=== PATIENT | female | born 1970 | race Hispanic/Latino ===

== ENCOUNTER 2018-06-23 09:21 | Emergency (ER) | payer OTHER ==
[~2018-06-23] VITALS: Ht 165.1 cm; Wt 54.4 kg
[2018-06-23] MEDS ORDERED: METHYLPREDNISOLONE ACETATE 40 MG/ML VIAL IM ONE (09:45)
--- NOTE | 2018-06-23 10:11 | Diagnostic Imaging Report ---
PROCEDURE:FINGER RT - HOPD COMPARISON:None. INDICATIONS:rt thumb pain FINDINGS: No evidence of fracture or malalignment. There is soft tissue edema of the thumb. The joint spaces are preserved. CONCLUSION: Soft tissue edema of the thumb without evidence of fracture or malalignment. Dictated by: LUCIE COTE M.D. on 06/23/2018 at 10:17 Electronically approved by: LUCIE COTE M.D. on 06/23/2018 at 10:17
== END 2018-06-23 11:22 | disposition home or self-care (01) ==
LOC: FSED 09:21
DX: M65.311 Trigger thumb, right thumb (principal); M77.9 Enthesopathy, unspecified
CPT/HCPCS: 73140; 99283; J1030

== ENCOUNTER 2019-09-06 06:52 | Emergency (ER) | payer OTHER ==
[~2019-09-06] VITALS: Ht 165.1 cm; Wt 54.4 kg
--- OUTSIDE RECORDS SUMMARY | 2019-09-06 06:55 | XMS REPORT ---
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 Allergies, Adverse Reactions, Alerts This patient has no known allergies or adverse reactions. Medications This patient has no known medications. Results Test Description Test Time Test Comments Text Results Atomic Results Result Comments FINGER RT - HOPD 2018-06-23 10:17:00 [place] [address] Patient Name: WILLIS GARCIA MR #: [id number] : 1970 Age/Sex: 48/F Req #: [id number] [facility] Physician: Ordered by: KACEY RUBIN MD Report #: [id number] Location: [facility] Room/Bed: Procedure: [id number] HOPD/FINGER RT - HOPD Exam Date: Exam Time: REPORT STATUS: Signed PROCEDURE: FINGER RT - HOPD COMPARISON: None. INDICATIONS: rt thumb pain FINDINGS: No evidence of fracture or malalignment. There is soft tissue edema of the thumb. The joint spaces are preserved. CONCLUSION: Soft tissue edema of the thumb without evidence of fracture or malalignment. Dictated by: LUCIE COTE M.D. on 06/23/2018 at 10:17 Electronically approved by: LUCIE COTE M.D. on 06/23/2018 at 10:17 Dictated By: LUCIE COTE MD [id number] Transcribed By: KRISTEN on 06/23/18 1017 COPY TO: KACEY RUBIN MD
[2019-09-06] MEDS ORDERED: FAMOTIDINE 20 MG/2 ML VIAL IV STA (07:16)
[2019-09-06] MEDS ORDERED: ONDANSETRON HCL INJ 2MG/ML 2ML 2 MG/ML VIAL IV STA (07:16)
[2019-09-06] MEDS ORDERED: FAMOTIDINE 20 MG/2 ML VIAL IV ONE (07:27)
[2019-09-06] MEDS ORDERED: ONDANSETRON HCL INJ 2MG/ML 2ML 2 MG/ML VIAL ONE (07:27)
[2019-09-06] MEDS ORDERED: SODIUM CHLORIDE 0.9% 1000ML 1,000 ML IV SCH (07:30)
--- NOTE | 2019-09-06 08:41 | Diagnostic Imaging Report ---
Exam: KUB - 2 views Indication: Nausea, vomiting Comparison: None Findings: Nonobstructive bowel gas pattern. No free air. No abnormal calcifications. The osseous structures appear unremarkable. The lungs are well-inflated. No focal consolidation or pulmonary edema. The heart is normal in size. Impression: No acute radiographic abnormality. Signed by: Ari Mathews MD on 09/06/2019 8:38 AM
[2019-09-06] MEDS ORDERED: ONDANSETRON ODT8 MG PO (08:59)
[2019-09-06 09:33] VITALS: BP 112/65
== END 2019-09-06 09:20 | disposition home or self-care (01) ==
LOC: FSED 06:52
DX: K29.00 Acute gastritis without bleeding (principal); R10.13 Epigastric pain
CPT/HCPCS: 74022; 80048; 80076; 81003; 81025; 84484; 85025; 99284; J2405; J7030

== ENCOUNTER → 2020-10-05 | Outpatient (CLI) | payer OTHER ==
[~2020-10-05] MED LIST: ONDANSETRON ODT8 MG PO
--- NOTE | 2020-10-05 10:10 | Diagnostic Imaging Report ---
MRI of the left shoulder without contrast. History: Shoulder pain. Decreased range of motion. Impingement. Pain not responding to conservative management Comparison: None Technique: Coronal PD FS, sagital PD FS, and axial PD and PD FS. Findings: Rotator cuff: Rotator cuff tendinosis without tear, muscle atrophy or retraction. Osseous acromion complex: Type II acromion with mild lateral downsloping. 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 Chronic appearing deformity of the distal clavicle/acromioclavicular joint. Glenohumeral joint: Degeneration and fraying of the labrum. The articular cartilage surfaces are intact. The humeral head is well-seated in the glenoid fossa. Biceps tendon: The biceps tendon is intact. Other findings: Negative for muscle denervation or osseous fracture. Impression: Rotator cuff tendinosis without tear, muscle atrophy or retraction. 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 Chronic appearing deformity of the distal clavicle/acromioclavicular joint. Signed by: Dr. Moisés Vaca M.D. on 10/05/2020 10:07 AM
== END ==
LOC: MRI 08:47
PROVIDERS: ATTEND Specialist
DX: M75.42 Impingement syndrome of left shoulder (principal)

== ENCOUNTER → 2020-10-23 | Day surgery (SDC) | payer OTHER ==
[~2020-10-23] MED LIST changes: +ACETAMINOPHEN/CODEINE 300MG - 30MG TAB ONE; +CEFAZOLIN SOD 1 GM/NS 50ML 50 ML IV ONE; +EPINEPHRINE 1 MG/ML 30ML VIAL ONE; +FENTANYL CITRATE/PF 100MCG/2 ML INJ ONE; +MELOXICAM7.5 MG PO; +MIDAZOLAM HCL 2 MG/2 ML VIAL ONE; +ROPIVACAINE 0.5% 5 MG/ML 30 ML SDV ONE
[2020-10-23 10:30] VITALS: BP 114/60
== END | disposition home or self-care (01) ==
LOC: OR 05:57
PROVIDERS: ATTEND Specialist
DX: M24.412 Recurrent dislocation, left shoulder (principal); R00.1 Bradycardia, unspecified; Z91.81 History of falling; Z01.810 Encounter for preprocedural cardiovascular examination; Z01.812 Encounter for preprocedural laboratory examination; Z20.828 Contact with and (suspected) exposure to other viral communicable diseases
CPT/HCPCS: 23120; 93005; J0690; J2250; J2795; J3010; U0002

== ENCOUNTER 2025-07-12 20:21 | Emergency (ER) | payer OTHER ==
[~2025-07-12] VITALS: Ht 152.4 cm; Wt 57.6 kg
[~2025-07-12 20:21] MED LIST changes: -ACETAMINOPHEN/CODEINE 300MG - 30MG TAB ONE; -CEFAZOLIN SOD 1 GM/NS 50ML 50 ML IV ONE; -EPINEPHRINE 1 MG/ML 30ML VIAL ONE; -FENTANYL CITRATE/PF 100MCG/2 ML INJ ONE; -MIDAZOLAM HCL 2 MG/2 ML VIAL ONE; -ROPIVACAINE 0.5% 5 MG/ML 30 ML SDV ONE
[2025-07-12 20:25] VITALS: PULSE 67; RESP 16; TEMP 98.5
[2025-07-12] MEDS: IBUPROFEN 200 MG TAB PO ONE (20:48)
[2025-07-12] MEDS ORDERED: IBUPROFEN600 MG PO (21:15)
[2025-07-12] MEDS ORDERED: TYLENOL325 MG PO (21:15)
[2025-07-12 21:18] VITALS: BP 115/60; PULSE 66; RESP 16; TEMP 98.3; O2SAT 99
== END 2025-07-12 21:22 | disposition home or self-care (01) ==
LOC: FSED 20:27
DX: S92.415A Nondisplaced fracture of proximal phalanx of left great toe, initial encounter for closed fracture (principal); S90.112A Contusion of left great toe without damage to nail, initial encounter; W22.09XA Striking against other stationary object, initial encounter; Y93.01 Activity, walking, marching and hiking; Y92.89 Other specified places as the place of occurrence of the external cause
CPT/HCPCS: 99284